=== PATIENT | female | born 1965 | race Caucasian/White ===

== ENCOUNTER → 2016-07-01 | Outpatient (CLI) | payer OTHER | LOC: FIMAGING 13:57 | PROVIDERS: ATTEND Family Medicine | DX: N83.202 Unspecified ovarian cyst, left side (principal); Z90.710 Acquired absence of both cervix and uterus ==

== ENCOUNTER 2017-06-07 01:25 | Emergency (ER) | payer OTHER ==
--- NOTE | 2017-06-07 01:38 | EDPHY ---
H & P Stated Complaint: Fall, butt/back pain HPI/ROS: HPI CHIEF COMPLAINT: Fall on ice, head injury, coccyx pain HISTORY OF PRESENT ILLNESS: Patient is a very pleasant 52-year-old female she presents emergency room close to 2 o'clock in the morning after she slipped and fell on black ice in front of her house. Patient was return to her house around 8:30 p.m. And got out of the car and slipped and fell on black ice. She landed directly on her butt or coccyx region now has pain there, additionally she had head strike. She denies LOC. She had the back of her head. And states that now she has a frontal headache. She has vomited 3 times. And complains of nausea. She decided come to the emergency room due to ongoing nausea. She reports to me any time she gets sick she gets very nauseous and has vomiting. She does have a history of migraine headaches and developed a migraine 2 days ago. She took her Imitrex, Excedrin migraine and it has improved her headache over the past 48 hr. However since hitting her head on the concrete she has worsening headache with nausea and episodes of vomiting x3. Denies projectile. She denies neck pain. Denies numbness or tingling denies chest pain or shortness of breath. Main complaint is nausea, headache, and coccyx pain She denies being on any anticoagulation. Past Medical History: Migraine headache Past Surgical History: Denies significant surgical history Social History: Denies drugs alcohol tobacco. Family History: Noncontributory ROS REVIEW OF SYSTEMS: A comprehensive 10 point review of systems is otherwise negative aside from elements mentioned in the history of present illness. Exam Constitutional triage nursing summary reviewed, vital signs reviewed, awake/ alert. Eyes normal conjunctivae and sclera, EOMI, PERRLA. HENT very small amount of soft tissue swelling posterior occiput, otherwise atraumatic head and neck exam, no midline cervical spine pain, moist mucus membranes, no epistaxis, neck supple/ no meningismus, no raccoon eyes. Respiratory clear to auscultation bilaterally, normal breath sounds, no respiratory distress, no wheezing. Cardiovascular rate normal, regular rhythm, no murmur, no edema, distal pulses normal. Gastrointestinal soft, non-tender, no rebound, no guarding, normal bowel sounds, no distension, no pulsatile mass. Genitourinary no CVA tenderness. Musculoskeletal back exam no midline vertebral body tenderness, however focal tenderness over the coccyx. full range of motion, no calf swelling, no tenderness of extremities, no meningismus, good pulses, neurovascularly intact. Skin pink, warm, & dry, no rash, skin atraumatic. Neurologic awake, alert and oriented x 3, AAOx3, moves all 4 extremities equally, motor intact, sensory intact, CN II-XII intact, normal cerebellar, normal vision, normal speech. Psychiatric normal mood/affect. Heme/Lymph/Immune no lymphadenopathy. Differential Diagnosis: Includes but is not limited to in a particular order multiple contusions, coccyx fracture, closed head injury, intracranial bleed, subdural, epidural, traumatic subarachnoid, skull fracture Medical Decision Making: Plan for this patient given head strike with vomiting will proceed with CT scan head without contrast to make sure there is no intracranial bleed or skull fracture, additionally will proceed with coccyx x- ray. Zofran for nausea and Tylenol for pain control. Re-evaluate. Re-evaluation: 0305: CT scan of the head without contrast is negative for acute traumatic injury specifically no bleed or skull fracture. Called to me by Dr. Peñaloza. X-ray of the coccyx is been reviewed by myself. I do not appreciate a fracture. 0306: I did go re-evaluate the patient resting comfortably in no acute distress. She is feeling better after Zofran. She does not feel newly is nauseous. She would like to go home. I have discussed return precautions with her she understands return to the emergency room she develops any worsening symptoms includes nausea, vomiting, worsening headache, chest pain or shortness of breath or severe back pain. She ambulated well throughout the emergency without difficulty. Feels comfortable going home. Prescription for Zofran provided. Source: Patient - Personal History LMP (Females 10-55): Hysterectomy Current Tetanus Diphtheria and Acellular Pertussis (TDAP): Yes - Medical/Surgical History Hx Asthma: No Hx Chronic Respiratory Disease: No Hx Diabetes: No Hx Cardiac Disease: No Hx Renal Disease: No Hx Cirrhosis: No Hx Alcoholism: No Hx HIV/AIDS: No Hx Splenectomy or Spleen Trauma: No - Social History Smoking Status: Never smoked Constitutional: Initial Vital Signs Temperature (C) 36.5 C 06/07/17 01:26 Heart Rate 120 H 06/07/17 01:26 Respiratory Rate 20 06/07/17 01:26 Blood Pressure 129/73 H 06/07/17 01:26 O2 Sat (%) 97 06/07/17 01:26 O2 Delivery Mode Room Air Allergies/Adverse Reactions: No Known Allergies Allergy (Verified 06/07/17 01:26) Home Medications: Medication Instructions Recorded Butorphanol Tartrate [Stadol] 2 mg IJ 06/13/12 Ondansetron Odt [Zofran Odt] 4 mg PO Q4PRN #6 tab 06/13/12 SUMAtriptan [Imitrex 25 MG (RX)] 25 mg PO Q2H 06/13/12 Zolpidem Tartrate [Ambien 5MG (RX)] 5 mg PO HS 06/13/12 Ondansetron HCl [Zofran] 4 mg PO Q4-6PRN PRN #10 tablet 06/07/17 Medical Decision Making - Data Points Medications Given: Discontinued Medications Acetaminophen (Tylenol) 1,000 mg PO EDNOW ONE Stop: 06/07/17 02:21 Last Admin: 06/07/17 02:42 Dose: Not Given Ondansetron HCl (Zofran Odt) 4 mg PO EDNOW ONE Stop: 06/07/17 01:52 Last Admin: 06/07/17 02:12 Dose: 4 mg Departure - Departure Disposition: Home, Routine, Self-Care Clinical Impression: Coccyx pain Head injury Qualifiers: Encounter type: initial encounter Qualified Code(s): S09.90XA - Unspecified injury of head, initial encounter Condition: Good Instructions: Coccyx Injury (ED), Concussion (ED), Head Injury (ED) Additional Instructions: 1. Return emergency room if develops worsening headache, vomiting, or you do not feel well. Referrals: Odilia Isaacs MD [Primary Care Provider] - As per Instructions Prescriptions: Ondansetron HCl [Zofran] 4 mg PO Q4-6PRN PRN #10 tablet PRN Reason: Nausea/Vomiting, Use 1st
[2017-06-07] MEDS ORDERED: ONDANSETRON DISINTEGRATING 4 MG TAB PO ONE (01:51)
[2017-06-07] MEDS ORDERED: ACETAMINOPHEN 500 MG TAB PO ONE (02:20)
[2017-06-07 03:11] VITALS: BP 113/64; PULSE 100; RESP 16; TEMP 98.6; O2SAT 93
--- NOTE | 2017-06-07 15:19 | ASMTCMCOM ---
CM Note CM Note Notes: Attempted to call/LM with patient regarding an addendum to her x-ray from visit earlier today. No change in follow up or recommendations. Unable to LM on patient's VM due to "voice mailbox is full". I have faxed a copy of the patient's ER report and x-ray (including addendum) to patient's PCP, Dr. Judi Isaacs Date Signed: 06/07/2017 03:18 PM Electronically Signed By:Raissa Stephen RN
== END 2017-06-07 03:15 | disposition home or self-care (01) ==
DX: S09.90XA Unspecified injury of head, initial encounter (principal); S39.92XA Unspecified injury of lower back, initial encounter; W00.0XXA Fall on same level due to ice and snow, initial encounter; Y92.009 Unspecified place in unspecified non-institutional (private) residence as the place of occurrence of the external cause; Y93.89 Activity, other specified